=== PATIENT | female | born 1985 | race Caucasian/White ===

== ENCOUNTER 2021-04-13 22:41 | Emergency (ER) | payer BC ==
[~2021-04-13] VITALS: Ht 172.7 cm; Wt 111.0 kg
[2021-04-13 22:41] VITALS: BP 163/88
[2021-04-13] MEDS ORDERED: oxyCODONE/APAP 5/325 1 TAB TABLET PO ONE (23:15)
--- NOTE | 2021-04-13 23:19 | PHYS DOC ---
Adult General Chief Complaint Chief Complaint: EARACHE/EAR PAIN HPI HPI Patient is a 35-year-old female presents with dental pain. States that she has a bad upper right molar/wisdom tooth that needs to be pulled but was told that it would cost $3000 to do it and she has not done it yet. States have been going on for several months on and off. States he has been taking ibuprofen once a day which helps for short amount of time. States she does not currently have a dentist. Denies any fevers, pain or trouble swallowing, chest pain, shortness of breath, abdominal pain, nausea, vomiting. States that sometimes the pain radiates to her right ear. Review of Systems Review of Systems Review of systems otherwise unremarkable except noted in HPI Physical Exam Physical Exam Constitutional: Well developed, well nourished, no acute distress, non-toxic appearance. [] HENT: Normocephalic, atraumatic, bilateral external ears normal, bilateral tympanic membranes normal, no signs of otitis externa, oropharynx moist, no oral exudates, nose normal, upper right back molar appears broken off at the gumline. [] Eyes: conjunctiva normal, no discharge. [] Neck: Normal range of motion, no tenderness, supple, no stridor no lymphadenopathy. [] Neurologic: Alert and oriented X 3, no focal deficits noted. [] Psychologic: Affect normal, judgement normal, mood normal. [] EKG EKG [] Radiology/Procedures Radiology/Procedures [] Heart Score C/O Chest Pain: No Risk Factors: Risk Factors: DM, Current or recent (<one month) smoker, HTN, HLP, family history of CAD, obesity. Risk Scores: Risk Factors: DM, Current or recent (<one month) smoker, HTN, HLP, family history of CAD, obesity. Course & Med Decision Making Course & Med Decision Making Patient is a 35-year-old female who presents with dental pain Vital signs not concerning. Physical exam noted above. Patient declined dental block. States she took 800 of ibuprofen just before coming. Gave oral pain medicine here. Discussed pain management at home. Gave contact information for local dentist in the emergency dentist and advised to call Thursday morning as they could get him in usually same day. Gave return precautions to the ED. [] Dragon Disclaimer Dragon Disclaimer This electronic medical record was generated, in whole or in part, using a voice recognition dictation system. Departure Departure: Impression: Primary Impression: Pain, dental Disposition: HOME / SELF CARE / HOMELESS Condition: GOOD Referrals: PCP,VINCENZO (PCP) DINORA HERMAN Patient Instructions: Dental Pain Additional Instructions: Thank you for coming into the emergency department tonight and allowing us to take care of you. Please read all the attached information provided. You can begin a Tylenol, ibuprofen, Benadryl and Orajel regimen as discussed. Please call the emergency dentist at the number provided tomorrow and leave a message or call first thing Thursday when they open up. Be prepared to be able to run over there as a lot of times they can get you in same day. Please come back to the ED with new or concerning symptoms as discussed. ELIS FERRELL MD Apr 13, 2021 23:19
== END 2021-04-13 23:29 | disposition home or self-care (01) ==
LOC: ER 22:41
DX: K08.89 Other specified disorders of teeth and supporting structures (principal)
CPT/HCPCS: 99282